=== PATIENT | female | born 1970 | race Caucasian/White ===

== ENCOUNTER 2020-09-30 12:30 | Emergency (ER) | payer OTHER ==
[~2020-09-30] VITALS: Ht 154.9 cm; Wt 56.7 kg
[2020-09-30] MEDS ORDERED: METOCLOPRAMIDE HCL 10 MG/2 ML VIAL IVP ONE (13:00)
[2020-09-30] MEDS ORDERED: DIPHENHYDRAMINE INJ 50 MG/ML VIAL IVP ONE (13:00)
[2020-09-30 13:15] LABS: BILIRUBIN,URINE NEGATIVE (NEGATIVE); BLOOD, URINE NEGATIVE (NEGATIVE); CLARITY/URINE CLEAR (CLEAR); COLOR,URINE YELLOW (YELLOW); GLUCOSE,URINE NEGATIVE (NEGATIVE); KETONES,URINE NEGATIVE (NEGATIVE); LEUKOCYTE ESTERASE ,URINE NEGATIVE (NEGATIVE); NITRITE, URINE NEGATIVE (NEGATIVE); PH,URINE 5.5 (5.0-8.0); PROTEIN URINE NEGATIVE (NEGATIVE); UROBILINOGEN,URINE 0.2 (0.2-1.0)
[2020-09-30 13:17] LABS: BASOPHILS % (AUTO) 0.6 % (0.0-2.0); EOSINOPHILS # (AUTO) 0.1 K/uL (0.0-0.4); EOSINOPHILS % (AUTO) 1.3 % (0.0-4.0); HEMATOCRIT 40.3 % (36-48); HEMOGLOBIN 13.7 g/dL (12.0-16.0); LYMPHOCYTES # (AUTO) 1.7 K/uL (1.0-5.5); LYMPHOCYTES % (AUTO) 29.9 % (20.5-51.5); MEAN CORPUSCULAR HEMOGLOBIN 32 pg (27-31); MEAN CORPUSCULAR HGB CONC 34 % (32-36); MEAN CORPUSCULAR VOLUME 93 fL (79.0-98.0); MONOCYTES # (AUTO) 0.4 K/uL (0.0-1.0); MONOCYTES % (AUTO) 6.4 % (1.7-9.3); NEUTROPHILS # (AUTO) 3.5 K/uL (1.8-7.7); NEUTROPHILS % (AUTO) 61.8 % (40.0-70.0); PLATELET COUNT (AUTO) 152 K/uL (130-430); RED BLOOD CELL COUNT(AUTO) 4.34 MIL/uL (4.2-6.2); RED CELL DISTRIBUTION WIDTH 12.8 % (9.0-15.0); WHITE BLOOD COUNT (AUTO) 5.7 K/uL (4.8-10.8)
[2020-09-30 13:29] LABS: CALCIUM 8.7 mg/dL (8.4-11.0); CREATININE 0.87 mg/dL (0.55-1.30); POTASSIUM 3.6 mmol/L (3.5-5.1)
[2020-09-30 13:33] LABS: PROTHROMBIN TIME 10.9 SECS (9.5-12.5)
[2020-09-30 13:35] LABS: ALBUMIN 3.7 g/dL (3.4-4.8); TOTAL BILIRUBIN 0.7 mg/dL (0.0-1.0)
[2020-09-30 13:51] LABS: C-REACTIVE PROTEIN QUANT 0.2 mg/dL (0-0.5)
[2020-09-30 14:18] LABS: ERYTHROCYTE SEDIMENTATION RATE 2 MM/HR (0-20)
[2020-09-30] MEDS ORDERED: KETOROLAC TROMETHAMINE 60 MG/2 ML VIAL IM ONE (14:30)
[2020-09-30] MEDS ORDERED: HYDR-3917 PO (14:31)
[2020-09-30] MEDS ORDERED: IBUP-1969 PO (14:31)
[2020-09-30 15:39] VITALS: BP_SYST 132
== END 2020-09-30 15:41 | disposition home or self-care (01) ==
LOC: SED 12:30
DX: K80.20 Calculus of gallbladder without cholecystitis without obstruction (principal); R51.9 Headache, unspecified; Z79.899 Other long term (current) drug therapy
CPT/HCPCS: 36415; 70450; 76376; 76700; 80053; 81003; 82150; 83605; 83690; 84484; 84703; 85025; 85610; 85651; 85730; 86140; 96372; 96374; 96375; 99285; J1200; J1885; J2765

== ENCOUNTER 2022-02-25 12:07 | Emergency (ER) | payer OTHER ==
[~2022-02-25] VITALS: Ht 154.9 cm; Wt 62.6 kg
[~2022-02-25 12:07] MED LIST: HYDR-3917 PO; IBUP-1969 PO
[2022-02-25 12:42] VITALS: BP_SYST 112
--- NOTE | 2022-02-25 12:45 | NUR ---
Patient to ER bed CH1 to gown for evaluation. Side rails up. Report RECEIVED FROM MARIELY JEROME.
--- NOTE | 2022-02-25 12:46 | NUR ---
PT CAME IN WITH C/O RT KNEE PAIN 8/10 TIMES SEVERAL WEEKS. PT STATES SHE SAW PHYSICIAN AND WAS GIVEN IBUPROFEN. PT STATES THIS TX HAS BEEN INEFFECTIVE. PT DENIES REMARKABLE MEDICAL HX. STATES HAS HX OF HYSTERECTOMY AND 2 BUNYUN SURGERIES. PATIENT IS CALM AND COOPERATIVE, A7OX4, IS WITH HER AT BEDSIDE.
--- NOTE | 2022-02-25 12:47 | NUR ---
Mathew salmon in ED - 02/25/22 at 1251 by SDEDSKM CHRISTY DONALD at bedside examining patient.
--- NOTE | 2022-02-25 12:47 | NUR ---
ER Dr. DONALD at bedside examining patient.
--- NOTE | 2022-02-25 13:23 | NUR ---
ER Dr. DONALD at bedside examining patient.
[2022-02-25] MEDS ORDERED: LIDO5CRE18 TP (13:41)
[2022-02-25] MEDS ORDERED: MORPHINE 4 MG INJ. 4 MG/ML VIAL IM ONE (13:45)
[2022-02-25] MEDS ORDERED: KETOROLAC TROMETHAMINE 30 MG VIAL IM ONE (13:45)
--- NOTE | 2022-02-25 14:43 | NUR ---
Patient given written and verbal discharge instructions and verbalizes understanding. ER DR. ODILON PARKER discussed with patient the results and treatment provided. Patient in stable condition. ID arm band removed. IV catheter removed intact and dressing applied, no active bleeding. Rx of LIDOCAINE PATCHES given. Patient educated on pain management and to follow up with PMD. Pain Scale 5/10. Opportunity for questions provided and answered. Medication side effect fact sheet provided.
== END 2022-02-25 14:41 | disposition home or self-care (01) ==
LOC: SED 12:07
DX: M25.561 Pain in right knee (principal); Z79.899 Other long term (current) drug therapy
CPT/HCPCS: 99284; 96372; J1885; J2270

== ENCOUNTER 2022-06-07 09:05 | Emergency (ER) | payer OTHER ==
[~2022-06-07] VITALS: Ht 154.9 cm; Wt 64.0 kg
[~2022-06-07 09:05] MED LIST changes: +LIDO5CRE18 TP
[2022-06-07 09:25] VITALS: BP_SYST 143
--- NOTE | 2022-06-07 09:30 | NUR ---
DR NOLAND OUT TO TRIAGE ROOM FOR EVALUATION
[2022-06-07 10:01] LABS: BASOPHILS % (AUTO) 0.5 % (0.0-2.0); EOSINOPHILS # (AUTO) 0.2 K/uL (0.0-0.4); EOSINOPHILS % (AUTO) 3.1 % (0.0-4.0); HEMATOCRIT 42.5 % (36-48); HEMOGLOBIN 14.5 g/dL (12.0-16.0); LYMPHOCYTES # (AUTO) 1.9 K/uL (1.0-5.5); LYMPHOCYTES % (AUTO) 32.1 % (20.5-51.5); MEAN CORPUSCULAR HEMOGLOBIN 32 pg (27-31); MEAN CORPUSCULAR HGB CONC 34 % (32-36); MEAN CORPUSCULAR VOLUME 94 fL (79.0-98.0); MONOCYTES # (AUTO) 0.4 K/uL (0.0-1.0); MONOCYTES % (AUTO) 6.9 % (1.7-9.3); NEUTROPHILS # (AUTO) 3.4 K/uL (1.8-7.7); NEUTROPHILS % (AUTO) 57.4 % (40.0-70.0); PLATELET COUNT (AUTO) 217 K/uL (130-430); RED BLOOD CELL COUNT(AUTO) 4.53 MIL/uL (4.2-6.2); RED CELL DISTRIBUTION WIDTH 13.9 % (9.0-15.0); WHITE BLOOD COUNT (AUTO) 5.9 K/uL (4.8-10.8)
[2022-06-07 10:13] LABS: PROTHROMBIN TIME 10.4 SECS (9.5-12.5)
[2022-06-07 10:14] LABS: CALCIUM 8.8 mg/dL (8.4-11.0); CREATININE 0.93 mg/dL (0.55-1.30)
--- NOTE | 2022-06-07 10:16 | NUR ---
BROUGHT BACK TO BED #7 AND REPORT GIVEN TO ESTHER
[2022-06-07 10:17] LABS: ALBUMIN 3.9 g/dL (3.4-4.8); TOTAL BILIRUBIN 0.7 mg/dL (0.0-1.0)
--- NOTE | 2022-06-07 10:21 | NUR ---
DR NOLAND AT BEDSIDE TO EVALUATE PT
--- NOTE | 2022-06-07 10:27 | NUR ---
ASSUMED CARE OF A&OX 4 PT WITH CLEAR SPEECH AND PATENT AIRWAY AND C/O 2 WEEKS OF RECTAL BLEEDING WITH INTERMITTENT ABDOMINAL CRAMPING. PT REPORTS THE BLEEDING IS ALWAYS BRIGHT RED, AND SOMETIMES OCCURS AFTER HAVING BM, BUT OTHER TIMES OCCUR EVEN WHEN SHE IS URINATING, SHE REPORTS A FEW DROPS OF BRIGHT RED BLOOD MAY COME OUT WELL. PT REPORTS THAT THERE IS NO RELATIONSHIP BETWEEN THE ABDOMINAL CRAMPING AND HER DIET. PT ALSO DENIES N/V/D OR ANY RECENT ILLNESS. 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 SPOUSE AT BEDSIDE. PATIENT PLACED IN GOWN WITH WARM BLANKETS PROVIDED. WILL CONTINUE TO MONITOR.
--- NOTE | 2022-06-07 10:40 | NUR ---
URINE ORDERED BUT PT REPORTED SHE HAD A HYSTERECTOMY YEARS AGO.
[2022-06-07] MEDS ORDERED: HYDROcodone/ACETAMIN 10-325 MG TAB PO ONE (11:30)
[2022-06-07] MEDS ORDERED: IBUPROFEN 800 MG TABLET PO ONE (11:30)
[2022-06-07] MEDS ORDERED: IBUP-1969 PO (11:56)
[2022-06-07] MEDS ORDERED: HYDR-3917 PO (11:56)
--- NOTE | 2022-06-07 12:15 | NUR ---
PT REMAINS STABLE AND A&OX 4 WITH CLEAR SPEECH AND PATENT AIRWAY. PT REPORTS MINIMAL IMPROVEMENT WITH PAIN MEDICATION SO PT WAS PROVIDED A WARM BLANKET TO PLACE ON STOMACH AND LIGHTS WERE LOWERED FOR COMFORT. PT IS PENDING DC AT THIS TIME.
[2022-06-07 12:51] VITALS: BP_SYST 123
--- NOTE | 2022-06-07 12:51 | NUR ---
Patient given written and verbal discharge instructions and verbalizes understanding. ER MD discussed with patient the results and treatment provided. Patient in stable condition. ID arm band removed. RX SENT TO PHARMACY. Patient educated on pain management and to follow up with PMD. PT REPORTS PAIN IS TOLERABLE AT THIS TIME Opportunity for questions provided and answered. Medication side effect fact sheet provided. PT AMBULATED OUT OF ED WITH A STEADY GAIT
== END 2022-06-07 12:51 | disposition home or self-care (01) ==
LOC: SED 09:05
DX: K52.9 Noninfective gastroenteritis and colitis, unspecified (principal); K62.5 Hemorrhage of anus and rectum; R10.9 Unspecified abdominal pain; Z79.899 Other long term (current) drug therapy
CPT/HCPCS: 36415; 76376; 80053; 82150; 83605; 83690; 84703; 85025; 85610-TC; 85730-TC; 86886; 86900; 86901; 99284

== ENCOUNTER 2023-04-02 16:04 | Emergency (ER) | payer OTHER ==
[~2023-04-02] VITALS: Ht 154.9 cm; Wt 61.2 kg
[2023-04-02 16:14] VITALS: BP_SYST 130; PULSE 71; RESP 18; TEMP 98.7; O2SAT 97
== END 2023-04-02 18:00 | disposition left against medical advice (07) ==
LOC: SED 16:04
DX: R42 Dizziness and giddiness (principal); Z53.21 Procedure and treatment not carried out due to patient leaving prior to being seen by health care provider
CPT/HCPCS: 99281